=== PATIENT | male | born 1995 | race Caucasian/White ===

== ENCOUNTER 2022-03-07 18:20 | Emergency (ER) | payer OTHER ==
[~2022-03-07] VITALS: Ht 177.8 cm; Wt 63.0 kg
[2022-03-07 19:06] VITALS: BP 142/94
[2022-03-07 19:15] VITALS: BP 126/92
[2022-03-07] MEDS ORDERED: FLOXIN OTIC0.3 % OT (19:16)
[2022-03-07] MEDS ORDERED: AMOX/K CLAV875 M1 PO (19:16)
[2022-03-07 19:24] VITALS: BP 126/92
== END 2022-03-07 19:30 | disposition home or self-care (01) ==
LOC: ED 18:20
DX: H66.92 Otitis media, unspecified, left ear (principal); H60.92 Unspecified otitis externa, left ear